=== PATIENT | male | born 1965 | race Asian ===

== ENCOUNTER 2020-12-26 14:05 | Emergency (ER) | payer OTHER ==
[~2020-12-26] VITALS: Ht 167.6 cm; Wt 62.6 kg
[2020-12-26] MEDS ORDERED: LISI20 PO (15:55)
[2020-12-26] MEDS ORDERED: Simvastatin20 MG PO (15:55)
[2020-12-26] MEDS ORDERED: SULTRIDS PO (16:22)
[2020-12-26] MEDS ORDERED: CEPH500 PO (16:22)
== END 2020-12-26 16:26 | disposition home or self-care (01) ==
LOC: ER 14:05
DX: L03.113 Cellulitis of right upper limb (principal); I10 Essential (primary) hypertension; E78.5 Hyperlipidemia, unspecified; Z79.899 Other long term (current) drug therapy
CPT/HCPCS: 73140; 99283-25